=== PATIENT | female | born 1995 | race Caucasian/White ===

== ENCOUNTER → 2017-02-06 | Outpatient (CLI) | payer BC ==
[~2017-02-06] MED LIST: DOXYCYCLINE HY100 M4 PO
[2017-02-06 11:44] LABS: HEMOGLOBIN 13.7 g/dL (12.2-16.2); LYMPH # 2.1 K/mm3 (0.7-4.5); LYMPH % 30.7 % (10-50.0)
[2017-02-06 13:31] LABS: BUN 11 mg/dL (7-18); FREE THYROXIN INDEX 5.9 ug/dl (5.93-13.13)
[2017-02-06 13:49] LABS: GFR (ESTIMATED) 104 ML/MIN (59-)
[2017-02-07 08:45] LABS: HBsAg Screen Negative (Negative); HIV Screen 4th Generation wRfx Non Reactive (Non Reactive); HSV 2 IgG, Type Spec <0.91 index (0.00-0.90); Hep A Ab, IgM Negative (Negative); Hep B Core Ab, IgM Negative (Negative); Hep C Virus Ab <0.1 (0.0-0.9); Rapid Plasma Reagin, Quant Non Reactive (NonRea<1:1)
[2017-02-07 16:41] LABS: HSV, IgM I/II Combination <0.91 Ratio (0.00-0.90)
== END ==
LOC: LAB 11:15
PROVIDERS: Nurse Practitioner Obstetrics & Gynecology
DX: Z01.419 Encounter for gynecological examination (general) (routine) without abnormal findings (principal); Z72.51 High risk heterosexual behavior; R53.82 Chronic fatigue, unspecified
CPT/HCPCS: G0432